=== PATIENT | female | born 1990 | race Caucasian/White ===

== ENCOUNTER → 2018-04-11 | Emergency (ER) | payer OTHER ==
[~2018-04-11] VITALS: Ht 165.1 cm; Wt 56.7 kg
== END | disposition home or self-care (01) ==
LOC: ER 22:27
DX: L03.113 Cellulitis of right upper limb (principal)

== ENCOUNTER 2018-08-29 11:11 | Emergency (ER) | payer OTHER ==
[~2018-08-29] VITALS: Ht 195.6 cm; Wt 70.8 kg
[~2018-08-29 11:11] MED LIST: AZITHROMYCIN500 MG PO; CEFADROXIL500 MG PO; CIPRO750 MG PO; CLARINEX PO; CORTISONE14 GM TP; DOLOGESIC CAPSU1 CAP PO; IMODIUM A-D2 MG PO; MOTRIN600 MG PO; OSEL75CA PO; PEPCID40 MG PO; PHENERGAN25 MG PO; TUSICOF LIQUID120 ML PO; TUSIORGANIDIN DM PO
[2018-08-29] MEDS ORDERED: NORFLEX100MG PO (13:27)
[2018-08-29] MEDS ORDERED: KETO10TA2 PO (13:27)
== END 2018-08-29 13:38 | disposition home or self-care (01) ==
LOC: ER 11:11
DX: M54.2 Cervicalgia (principal)

== ENCOUNTER 2019-04-22 21:47 | Emergency (ER) | payer OTHER ==
[~2019-04-22] VITALS: Ht 167.6 cm; Wt 77.1 kg
[~2019-04-22 21:47] MED LIST changes: +KETO10TA2 PO; +NORFLEX100MG PO
[2019-04-22] MEDS ORDERED: TUSNEL LIQUID178 ML PO (22:46)
[2019-04-22] MEDS ORDERED: DICLOFENAC SODI75 MG PO (22:46)
== END 2019-04-22 22:54 | disposition home or self-care (01) ==
LOC: ER 21:47
DX: R07.1 Chest pain on breathing (principal); R05 Cough; M54.5 Low back pain

== ENCOUNTER 2020-01-10 13:40 | Emergency (ER) | payer OTHER ==
[~2020-01-10] VITALS: Ht 167.6 cm; Wt 79.4 kg
[~2020-01-10 13:40] MED LIST changes: +DICLOFENAC SODI75 MG PO; +TUSNEL LIQUID178 ML PO
== END 2020-01-10 16:57 | disposition home or self-care (01) ==
LOC: ER 13:40
DX: N93.8 Other specified abnormal uterine and vaginal bleeding (principal); N92.5 Other specified irregular menstruation

== ENCOUNTER 2023-05-30 13:59 | Emergency (ER) | payer OTHER ==
[~2023-05-30] VITALS: Ht 167.6 cm; Wt 73.9 kg
== END 2023-05-30 19:22 | disposition home or self-care (01) ==
LOC: ER 14:00
DX: M54.2 Cervicalgia (principal)

== ENCOUNTER 2025-04-22 09:52 | Emergency (ER) | payer OTHER ==
[~2025-04-22] VITALS: Ht 167.6 cm; Wt 73.9 kg
[2025-04-22] MEDS ORDERED: NORFLEX100MG PO (13:41)
[2025-04-22] MEDS ORDERED: IBUPROFEN600 MG PO (13:41)
[2025-04-22] MEDS ORDERED: KETOROLAC TROMETHAMINE 30 MG VIAL IM ONE (13:45)
[2025-04-22] MEDS ORDERED: DEXAMETHASONE SODIUM PHOSPHATE 4 MG/ML VIAL IM ONE (13:45)
[2025-04-22] MEDS ORDERED: ORPHENADRINE CITRATE 100 MG TABLET PO ONE (13:45)
== END 2025-04-22 13:59 | disposition home or self-care (01) ==
LOC: ER 09:52
DX: M94.0 Chondrocostal junction syndrome [Tietze] (principal); R07.89 Other chest pain